=== PATIENT | female | born 1990 | race Caucasian/White ===

== ENCOUNTER 2017-06-29 10:38 | Emergency (ER) | payer OTHER ==
[~2017-06-29] VITALS: Ht 165.1 cm; Wt 63.0 kg
[~2017-06-29 10:38] MED LIST: ADVIL PRN; NORG1TAB54
[2017-06-29 10:42] VITALS: Ht 165.1 cm; Wt 63.0 kg
[2017-06-29] MEDS ORDERED: morphine 4 MG/ML VIAL IV STA (12:55)
[2017-06-29] MEDS ORDERED: KETOROLAC 30 MG INJ IV STA (12:55)
[2017-06-29] MEDS ORDERED: SOD CHLORIDE 0.9% 1,000 ML IV STA (12:55)
[2017-06-29] MEDS ORDERED: ONDANSETRON 4 MG INJ IV STA (12:55)
--- NOTE | 2017-06-29 13:45 | ERA ---
ER Documentation Chief Complaint Date/Time DATE: 06/29/17 TIME: 13:41 Chief Complaint LT FLANK PAIN, PAINFUL URINATION, BLOOD IN URINE HPI 27-year-old female with a chief complaint of left flank pain. Described as sharp and pulling. Better when she walks around. Worse when lying flat still. Pain is worsened today but has been intermittent over the past 3-4 months. Has seen other providers and been given pain medications with no definitive diagnosis. States that she has been told her liver was enlarged. Is also complaining of red diarrhea without any other specific characteristics. Diarrhea has been more than 3 times a day for the past 2 days. Has not taken any medications to relieve the symptoms aside from pain medications - [place] given to her by aforementioned providers. Patient states that she has had a fever but has not taken her temperature. Denies any fever, chills, vomiting, pelvic pain, discharge, chest pain, shortness of breath, medical conditions. Patient has no other complaints and describes no other associated manifestations. Nursing notes have been reviewed and are consistent with history given. ROS All systems reviewed and are negative except as per history of present illness. Medications Home Meds Active Scripts Phenazopyridine Hcl* (Pyridium*) 100 Mg Tab, 100 MG PO TID Y for URINARY PAIN, # 8 TAB Prov:SHARMILA VIDAL PA-C 06/29/17 Nitrofurantoin Monohyd Macrocr* (Macrobid*) 100 Mg Capsr, 100 MG PO HS for 7 Days, CAP Prov:SHARMILA VIDAL PA-C 06/29/17 Ibuprofen* (Motrin*) 400 Mg Tab, 400 MG PO Q6, #30 TAB Prov:SHARMILA VIDAL PA-C 06/29/17 Reported Medications [Advil Prn] No Conflict Check 03/25/10 Norgestimate-Ethinyl Estradiol (Ortho Tri-Cyclen Lo) 7 Daysx 3 Lo Tablet 02/06/10 Allergies Allergies: Coded Allergies: No Known Allergy (Verified Adverse Reaction, Mild, 03/25/10) NO ADVERSE RXN PMhx/Soc History of Surgery: Yes (BREAST AUGMENTATION) Anesthesia Reaction: No Hx Neurological Disorder: No Hx Respiratory Disorders: No Hx Cardiac Disorders: No Hx Psychiatric Problems: No Hx Miscellaneous Medical Probl: No Hx Alcohol Use: Yes Hx Substance Use: No Hx Tobacco Use: Yes Smoking Status: Current every day smoker Physical Exam Vitals Vital Signs Date Time Temp Pulse Resp B/P Pulse Ox O2 Delivery O2 Flow Rate FiO2 06/29/17 10:42 98.5 82 18 102/55 99 Physical Exam Const: 27-year-old female in moderate distress sitting on the gurney on initial presentation Abd: Soft with no rebound or guarding. No tenderness elicited with palpation. Patient is able to jump up and down without distress. Normal bowl sounds auscultated in all 4 quadrants. No findings with percussion. No hepatomegaly, splenomegaly, enlarged abdominal aorta appreciated upon palpation. Negative Rovsings, psoas, obturator and [place] signs. No McBurney s point tenderness. Head: Atraumatic Eyes: Normal Conjunctiva, PERRLA, EOMI bilaterally. ENT: Normal External Ears, Nose and Mouth. Neck: No lymphadenopathy or other masses palpated. Full range of motion..~ No meningismus. Resp: Clear to auscultation bilaterally Cardio: Regular rate and rhythm, no murmurs Skin: No petechiae or rashes Back: No midline or flank tenderness Ext: No cyanosis, or edema Neur: Awake and alert Psych: Normal Mood and Affect Result Diagram: 06/29/17 1305 06/29/17 1305 Results 24 hrs Laboratory Tests Test 06/29/17 13:05 White Blood Count 10.610^3/ul Red Blood Count 3.8510^6/ul Hemoglobin 12.2g/dl Hematocrit 36.6% Mean Corpuscular Volume 95.1fl Mean Corpuscular Hemoglobin 31.7pg Mean Corpuscular Hemoglobin Concent 33.3g/dl Red Cell Distribution Width 12.9% Platelet Count 40937^3/UL Mean Platelet Volume 11.0fl Neutrophils % 81.1% Lymphocytes % 14.5% Monocytes % 3.5% Eosinophils % 0.2% Basophils % 0.3% Nucleated Red Blood Cells % 0.0/100WBC Neutrophils # (Manual) 8.610^3/ul Lymphocytes # 1.510^3/ul Monocytes # 0.410^3/ul Eosinophils # 0.010^3/ul Basophils # 0.010^3/ul Nucleated Red Blood Cells # 0.010^3/ul Urine Color YELLOW Urine Clarity SLIGHTLY CLOUDY Urine pH 8.0 Urine Specific [place] 1.018 Urine Ketones NEGATIVEmg/dL Urine Nitrite POSITIVEmg/dL Urine Bilirubin NEGATIVEmg/dL Urine Urobilinogen NEGATIVEmg/dL Urine Leukocyte Esterase 1+[place]/ul Urine Microscopic RBC 2/HPF Urine Microscopic WBC 13/HPF Urine Squamous Epithelial Cells FEW/HPF Urine Bacteria FEW/HPF Urine Mucus FEW/HPF Urine Hemoglobin 2+mg/dL Urine Glucose NEGATIVEmg/dL Urine Total Protein 1+mg/dl Sodium Level 145mmol/L Potassium Level 4.0mmol/L Chloride Level 104mmol/L Carbon Dioxide Level 25mmol/L Anion Gap 20 Blood Urea Nitrogen 10mg/dl Creatinine 0.73mg/dl Glucose Level 90mg/dl Calcium Level 9.6mg/dl Total Bilirubin 0.4mg/dl Direct Bilirubin 0.00mg/dl Indirect Bilirubin 0.4mg/dl Aspartate Amino Transf (AST/SGOT) 26IU/L Alanine Aminotransferase (ALT/SGPT) 40IU/L Alkaline Phosphatase 50IU/L Total Protein 8.1g/dl Albumin 4.6g/dl Globulin 3.50g/dl Albumin/Globulin Ratio 1.31 Lipase 62U/L Current Medications Medications (Trade) Dose Ordered Sig/[place] Route PRN Reason Start Time Stop Time Status Last Admin Dose Admin Sodium Chloride (NS) 1,000 ml @ 1,000 mls/hr Q1H STAT IV 06/29/17 12:55 06/29/17 13:54 DC 06/29/17 13:16 Morphine Sulfate (morphine) 4 mg ONCE STAT IV 06/29/17 12:55 06/29/17 12:57 DC 06/29/17 13:15 Ondansetron HCl (Zofran Inj) 4 mg ONCE STAT IV 06/29/17 12:55 06/29/17 12:57 DC 06/29/17 13:14 Ketorolac Tromethamine (Toradol) 30 mg ONCE STAT IV 06/29/17 12:55 06/29/17 12:57 DC 06/29/17 13:15 IV Flush 10 ml 10 ml STK-MED ONCE .ROUTE 06/29/17 14:20 06/29/17 14:21 DC 06/29/17 15:07 Sodium Chloride (NS) 100 ml @ ud STK-MED ONCE .ROUTE 06/29/17 14:20 06/29/17 14:21 DC 06/29/17 15:08 Iohexol (Omnipaque 300mg/ ml) 150 ml STK-MED ONCE .ROUTE 06/29/17 14:20 06/29/17 14:21 DC 06/29/17 15:08 Procedures/MDM 27-year-old female presenting with a chief complaint of abdominal pain as described in history and physical examination. Physical examination of which was unremarkable. Patient received IV morphine, IV Toradol, 1 L normal saline bolus over 1 hour. Patient received labs which resulted in the following: Urinalysis revealed increased white blood cells, suspicious for urinary tract infection. Labs were largely unremarkable. CT was obtained with contrast to rule out diverticulitis due to history of diarrhea, which was read by the radiologist and given the following impression: Congenital low-lying right kidney. Small amount of free fluid in the cul-de-sac. This could be physiologic. If further characterization of the organs of the pelvis is needed ultrasound is recommended. Otherwise, unremarkable exam. Most likely diagnosis is urinary tract infection. Outpatient treatment will consist of Macrobid 100 mg p.o. 7 days, and Pyridium for discomfort. Patient also given ibuprofen 400 mg p.o every 6 hours as needed for discomfort. At this time I do not suspect appendicitis, ectopic , ovarian cyst, PID, intestinal ischemia, peritonitis, intestinal obstruction, perforated viscus, acute pancreatitis, cholelithiasis, cholangitis, mechanical obstruction, or AAA. On repeat exam, the abdominal exam remains unremarkable without tenderness. The patient is well appearing, and tolerates PO. I have spoke with the patient regarding their condition and future management. They have verbally responded that they understand their status and treatment plan. The patients vitals are stable, and their current condition is appropriate for discharge. The patient will be given discharge instructions with return precautions. Departure Diagnosis: Primary Impression: Flank pain Condition: Stable Additional Instructions: Follow up with your PCP within the next 1-3 days for a more thorough evaluation and a possible referral to a specialist. Return the the emergency department immediately if symptoms worsen or change. If you have any questions regarding medications, ask your pharmacist or us before you leave. If any adverse reactions occur while taking your medications, discontinue the treatment and return to the emergency department immediately. Take your medications as directed, and complete the entire course of treatment. SHARMILA VIDAL PA-C Jun 29, 2017 13:45
[2017-06-29 13:48] LABS: BASOPHILS % 0.3 % (0.0-2.0); EOSINOPHILS % 0.2 % (0.0-7.0); HEMATOCRIT 36.6 % (37.0-47.0); HEMOGLOBIN 12.2 g/dl (12.0-16.0); LYMPHOCYTES # 1.5 10^3/ul (0.8-2.9); LYMPHOCYTES % 14.5 % (15.0-51.0); MEAN CORPUSCULAR HEMOGLOBIN 31.7 pg (29.0-33.0); MEAN CORPUSCULAR HGB CONC 33.3 g/dl (32.0-37.0); MEAN CORPUSCULAR VOLUME 95.1 fl (82.0-101.0); MONOCYTE # 0.4 10^3/ul (0.3-0.9); MONOCYTES % 3.5 % (0.0-11.0); NEUTROPHILS % 81.1 % (39.0-77.0); PLATELET COUNT 215 10^3/UL (140-415); RED BLOOD COUNT 3.85 10^6/ul (4.20-5.40); RED CELL DISTRIBUTION WIDTH 12.9 % (11.5-14.5); WHITE BLOOD COUNT 10.6 10^3/ul (4.8-10.8)
[2017-06-29 14:07] LABS: ALBUMIN 4.6 g/dl (3.3-4.9); ALBUMIN/GLOBULIN RATIO 1.31; BILIRUBIN,INDIRECT 0.4 mg/dl (0-1.1); BILIRUBIN,TOTAL 0.4 mg/dl (0.2-1.3); CALCIUM 9.6 mg/dl (8.4-10.2); CREATININE 0.73 mg/dl (0.44-1.00); TOTAL PROTEIN 8.1 g/dl (6.1-8.1)
[2017-06-29] MEDS ORDERED: IOHEXOL 300MG/ML 150 ML BTL ONE (14:20)
[2017-06-29] MEDS ORDERED: SOD CHLORIDE 0.9% 100 ML ONE (14:20)
[2017-06-29 14:44] LABS: ADD UMIC YES; UR ASCORBIC ACID NEGATIVE (NEGATIVE); UR BACTERIA FEW /HPF (NONE SEEN); UR BILIRUBIN (Dip) NEGATIVE (NEGATIVE); UR BLOOD (Dip) 2+ mg/dL (NEGATIVE); UR CLARITY SLIGHTLY CLOUDY (CLEAR); UR COLOR YELLOW (YELLOW); UR GLUCOSE (Dip) NEGATIVE (NEGATIVE); UR KETONES (Dip) NEGATIVE (NEGATIVE); UR LEUKOCYTE ESTERASE (Dip) 1+ Leu/ul (NEGATIVE); UR MUCUS FEW /HPF (NONE SEEN); UR NITRITE (Dip) POSITIVE (NEGATIVE); UR RBC 2 /HPF (0-5); UR SPECIFIC GRAVITY (Dip) 1.018 (1.003-1.030); UR SQUAMOUS EPITHELIAL CELL FEW /HPF (FEW); UR TOTAL PROTEIN (Dip) 1+ mg/dl (NEGATIVE); UR UROBILINOGEN (Dip) NEGATIVE (NEGATIVE)
--- NOTE | 2017-06-29 14:56 | RADRPT ---
PROCEDURE: CT abdomen and pelvis with IV contrast CLINICAL INDICATION: Nausea and vomiting, hematuria. TECHNIQUE: Axial images were obtained through the abdomen and pelvis after the IV administration o f 100 cc Omnipaque-300 IV contrast. Coronal and sagittal reconstructions were obtained. Automated e xposure control was utilized. DLP = 618.9 mGy-cm. CTDiol= 10.8 mGy. One or more of the following post reduction techniques were used: - Automated exposure control. - Adjustment of the mA and/or Kv according to patient's size. - Use of iterative reconstruction technique COMPARISON: May 24, 2009 FINDINGS: The visualized lower lungs are clear. Bilateral breast implants are seen. Heart size is within nor mal limits. The liver, gallbladder, pancreas, spleen and adrenals are unremarkable. 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 Findings are likely congenital. The kidne ys demonstrate symmetric enhancement. No obstructive uropathy is observed. The bladder is filled wi th a small amount of urine. The uterus is grossly unremarkable appearance. Air and stool are seen scattered within the colon. The appendix is normal. No dilated loops of sm all bowel are observed. The stomach and duodenum are unremarkable. Small amount of free fluid is noted in the cul-de-sac. No intra-abdominal or pelvic lymphadenopathy is observed. The arterial vasculature demonstrates a normal appearance. Osseous structures are intact and normal-appearing. Subcutaneous and muscular soft tissues surround ing the abdomen and pelvis are unremarkable. IMPRESSION: Congenital low-lying right kidney. Small amount of free fluid in the cul-de-sac. This could be physiologic. If further characterizati on of the organs of the pelvis is needed ultrasound is recommended. Otherwise, unremarkable exam. RPTAT: AA .James Palomares MD, MD Date Time Electronically viewed and signed by .James Palomares MD, MD on 06/29/2017 14:56 .P/
[2017-06-29] MEDS ORDERED: IBUP400T22 PO (15:21)
[2017-06-29] MEDS ORDERED: NITR-58 PO (15:24)
[2017-06-29] MEDS ORDERED: PHEN-537 PO (15:24)
[2017-06-29 15:36] VITALS: BP 100/59; PULSE 80; RESP 18; TEMP 98.2
== END 2017-06-29 15:36 | disposition home or self-care (01) ==
LOC: FTE 10:38
DX: R10.9 Unspecified abdominal pain (principal); F17.210 Nicotine dependence, cigarettes, uncomplicated
CPT/HCPCS: 36415; 74177; 80053; 81001; 83690; 85025; 96374; 96375; J1885; J2270; J2405; J7030; Q9967; Z7502; Z7610